=== PATIENT | male | born 1985 ===

== ENCOUNTER 2018-11-08 20:31 | Inpatient (IN) ==
[2018-11-08] MEDS ORDERED: METHOCARBAMOL 1,000 MG/10 ML VIAL IV STA (20:54)
[2018-11-08] MEDS ORDERED: SODIUM CHLORIDE 0.9% 1,000 ML IV STA (20:54)
[2018-11-08] MEDS ORDERED: ONDANSETRON 4 MG/2 ML VIAL IV STA (20:54)
[2018-11-08] MEDS ORDERED: POTASSIUM BICARB EFFERVESCENT 25 MEQ TABLET PO ONE (20:54)
[2018-11-08 21:27] LABS: Basophils # 0.1 10*3/uL (0.0-0.2); Basophils % 0.5 % (0.0-0.8); Eosinophils % 0.3 % (0.00-10.9); Hematocrit 49.3 VOL% (42.0-52.0); Hemoglobin 16.7 GM/DL (14.0-18.0); Immature Granulocytes % 0.7 %; Immature Granulocytes Absolute 0.08 #; Lymphocytes # 1.7 10*3/uL (1.4-4.0); Lymphocytes % 15.3 % (21.2-54.2); Mean Corpuscular HGB Conc 33.9 GM/DL (32-36); Mean Corpuscular Hemoglobin 32 PG (27-34); Mean Corpuscular Volume 94.3 FL (87-102); Mean Platelet Volume 9.4 FL (9.6-12.0); Monocytes # 0.7 10*3/uL (0.11-0.8); Monocytes % 6.4 % (1.7-12.7); Neutrophils # 8.4 10*3/uL (1.4-7.4); Neutrophils % 76.8 % (38.7-73.9); Platelet Count 316 T/CUMM (130-400); Red Blood Count 5.23 MC/CUMM (3.8-5.5); Red Cell Distribution Width 12.6 % (9.3-17.3)
[2018-11-08 21:31] LABS: Apearance,Urine CLEAR (Clear); Bilirubin,Urine Negative (Negative); Blood, Urine Negative (Negative); Glucose,Urine (UA) Negative (Negative); Ketones,Urine Negative (Negative); Nitrite,Urine Negative (Negative); Protein,Urine Negative; RBC,Urine 1 /HPF (0-4); Urine Color Straw (Yellow); Urine Specific Gravity 1.003 (1.001-1.035); Urine Urobilinogen < 2.0 EU/DL (0.2-1.0); WBC,Urine <1 /HPF (0-6)
[2018-11-08 21:42] LABS: Barbiturates Screen,Urine Negative (Negative); Benzodiazepines Screen,Urine Negative (Negative); Cannabinoid Screen,Urine Negative (Negative); Opiate Screen,Urine Negative (Negative); Phencyclidine Screen,Urine Negative (Negative)
[2018-11-08 21:44] LABS: INR 0.9; PT Patient Result 10.1 SECS
[2018-11-08 21:57] LABS: Alanine Aminotransferase 68 U/L (16-61); Albumin 3.5 G/DL (3.4-5.0); Alkaline Phosphatase 94 U/L (45-117); Aspartate Amino Transferase 42 U/L (0-37); Blood Urea Nitrogen 6 MG/DL (7-18); Calcium 7.6 MG/DL (8.5-10.1); Glucose 100 MG/DL (74-106); Osmolality,Calculated 270.8 MOS/KG (273-304); Potassium 4.2 MMOL/L (3.5-5.1); Sodium 137 MMOL/L (136-145); Total Protein 7.8 G/DL (6.4-8.3); Troponin I < 0.015 NG/ML (0.00-0.045)
[2018-11-08] MEDS ORDERED: THIAMINE INJ 100 MG, FOLIC ACID INJ 1 MG, MAGNESIUM SULF INJ 2 GM, MULTIVITAMIN INJ 10 ... IV STA (22:17)
[2018-11-09] MEDS ORDERED: LORazepam 2 MG/1 ML VIAL IV PRN (00:56)
[2018-11-09] MEDS ORDERED: PROMETHAZINE 25 MG/1 ML VIAL IM PRN (00:56)
[2018-11-09] MEDS ORDERED: NICOTINE 21 MG/24 HR PATCH TRANSDERM PRN (00:56)
[2018-11-09] MEDS ORDERED: ONDANSETRON 4 MG/2 ML VIAL IV PRN ×2 (00:56→09:55)
[2018-11-09] MEDS ORDERED: diphenhydrAMINE CAP 25 MG CAPSULE PO PRN (00:56)
[2018-11-09] MEDS: SODIUM CHLORIDE 0.9% 1,000 ML IV SCH ×4 (02:06→13:50)
[2018-11-09] MEDS: FOLIC ACID INJ 1 MG in SYRINGE 1 EACH IV SCH ×2 (02:48→10:08)
[2018-11-09] MEDS ORDERED: INFLUENZA VIRUS VACCINE 0.5 ML SYRINGE IM ONE (03:54)
[2018-11-09 04:41] LABS: Basophils % 0.5 % (0.0-0.8); Eosinophils # 0.1 10*3/uL (0.0-0.87); Eosinophils % 1.1 % (0.00-10.9); Hematocrit 48.1 VOL% (42.0-52.0); Hemoglobin 15.9 GM/DL (14.0-18.0); Immature Granulocytes % 0.2 %; Immature Granulocytes Absolute 0.02 #; Lymphocytes # 2.3 10*3/uL (1.4-4.0); Lymphocytes % 28.7 % (21.2-54.2); Mean Corpuscular HGB Conc 33.1 GM/DL (32-36); Mean Corpuscular Hemoglobin 31 PG (27-34); Mean Corpuscular Volume 95.1 FL (87-102); Mean Platelet Volume 9.4 FL (9.6-12.0); Monocytes # 1.1 10*3/uL (0.11-0.8); Neutrophils # 4.6 10*3/uL (1.4-7.4); Neutrophils % 56.5 % (38.7-73.9); Platelet Count 315 T/CUMM (130-400); Red Blood Count 5.06 MC/CUMM (3.8-5.5); Red Cell Distribution Width 12.8 % (9.3-17.3); White Blood Count 8.1 T/CUMM (4-12)
[2018-11-09 05:15] LABS: Albumin 3.4 G/DL (3.4-5.0); Bilirubin,Total 1.2 MG/DL (0.2-1.0); Osmolality,Calculated 280.1 MOS/KG (273-304); Potassium 4.2 MMOL/L (3.5-5.1)
[2018-11-09] MEDS ORDERED: ENOXAPARIN 40 MG/0.4 ML SYRINGE SUBCUT SCH (07:00)
[2018-11-09] MEDS ORDERED: ceFAZolin 2,000 MG in PREMIX 1 EACH IV ONE (07:36)
[2018-11-09] MEDS ORDERED: ceFAZolin 1,000 MG VIAL ONE (08:24)
[2018-11-09] MEDS ORDERED: MEPERIDINE 50 MG TABLET PO PRN (09:23)
[2018-11-09] MEDS ORDERED: PROPOFOL 200 MG/20 ML VIAL IV ONE (09:42)
[2018-11-09] MEDS ORDERED: fentaNYL 100 MCG/2 ML VIAL ONE ×2 (09:42)
[2018-11-09] MEDS ORDERED: SEVOFLURANE 1 UNIT/15 MINUTE INH ONE (09:42)
[2018-11-09] MEDS ORDERED: ROCURONIUM 100 MG/10 ML VIAL IV ONE (09:43)
[2018-11-09] MEDS ORDERED: GLYCOPYRROLATE 0.4 MG/2 ML VIAL ONE (09:43)
[2018-11-09] MEDS ORDERED: PHENYLEPHRINE 1 MG/10 ML SYRINGE IV ONE (09:43)
[2018-11-09] MEDS ORDERED: KETOROLAC 30 MG/1 ML VIAL ONE (09:43)
[2018-11-09] MEDS ORDERED: ONDANSETRON 4 MG/2 ML VIAL ONE ×2 (09:43→10:07)
[2018-11-09] MEDS ORDERED: NEOSTIGMINE 10 MG/10 ML VIAL ONE (09:43)
[2018-11-09] MEDS ORDERED: HYDROmorphone 2 MG/1 ML VIAL ONE (10:07)
[2018-11-09] MEDS: HYDROmorphone 2 MG/1 ML VIAL IV PRN ×4 (10:08→10:30)
[2018-11-09] MEDS: THIAMINE 100 MG TABLET PO SCH (10:08)
[2018-11-09] MEDS: MORPHINE 4 MG/1 ML VIAL IV PRN ×3 (13:51→23:50)
[2018-11-09] MEDS: ceFAZolin 2,000 MG in PREMIX 1 EACH IV SCH ×2 (13:52→21:37)
[2018-11-09] MEDS: MEPERIDINE 50 MG TABLET PO PRN ×2 (15:46→21:36)
[2018-11-10] MEDS: MEPERIDINE 50 MG TABLET PO PRN ×2 (01:59→17:21)
[2018-11-10] MEDS: SODIUM CHLORIDE 0.9% 1,000 ML IV SCH ×3 (02:00→22:37)
[2018-11-10] MEDS: KETOROLAC 15 MG/1 ML VIAL IV PRN (04:40)
[2018-11-10] MEDS: MORPHINE 10 MG/1 ML VIAL IV PRN ×5 (04:42→22:38)
[2018-11-10 06:07] LABS: Basophils % 0.5 % (0.0-0.8); Eosinophils # 0.2 10*3/uL (0.0-0.87); Eosinophils % 2.1 % (0.00-10.9); Hematocrit 40.6 VOL% (42.0-52.0); Hemoglobin 13.3 GM/DL (14.0-18.0); Immature Granulocytes % 0.5 %; Immature Granulocytes Absolute 0.04 #; Lymphocytes # 1.2 10*3/uL (1.4-4.0); Lymphocytes % 13.8 % (21.2-54.2); Mean Corpuscular HGB Conc 32.8 GM/DL (32-36); Mean Corpuscular Hemoglobin 32 PG (27-34); Mean Corpuscular Volume 97.1 FL (87-102); Mean Platelet Volume 9.5 FL (9.6-12.0); Monocytes # 1.7 10*3/uL (0.11-0.8); Monocytes % 20.2 % (1.7-12.7); Neutrophils # 5.4 10*3/uL (1.4-7.4); Neutrophils % 62.9 % (38.7-73.9); Platelet Count 223 T/CUMM (130-400); Red Blood Count 4.18 MC/CUMM (3.8-5.5); Red Cell Distribution Width 12.7 % (9.3-17.3); White Blood Count 8.5 T/CUMM (4-12)
[2018-11-10] MEDS: ceFAZolin 2,000 MG in PREMIX 1 EACH IV SCH (06:16)
[2018-11-10 06:38] LABS: Calcium 7.9 MG/DL (8.5-10.1); Osmolality,Calculated 270.8 MOS/KG (273-304); Potassium 4.2 MMOL/L (3.5-5.1)
[2018-11-10 06:43] LABS: Band Neutrophils 1 % (0-10); Eosinophils 3 % (0-10); Hypochromasia 1+; Lymphocytes 12 % (20-55); Platelet Estimate Adequate; Segmented Neutrophils 69 % (50-85); Total Cells Counted 100
[2018-11-10] MEDS: FOLIC ACID 1 MG TABLET PO SCH (07:59)
[2018-11-10] MEDS: THIAMINE 100 MG TABLET PO SCH (07:59)
[2018-11-11] MEDS: MEPERIDINE 50 MG TABLET PO PRN ×2 (04:27→08:13)
[2018-11-11] MEDS: THIAMINE 100 MG TABLET PO SCH (08:13)
[2018-11-11] MEDS: FOLIC ACID 1 MG TABLET PO SCH (08:13)
[2018-11-11] MEDS: KETOROLAC 15 MG/1 ML VIAL IV PRN (13:10)
[2018-11-12 06:13] LABS: Basophils % 0.2 % (0.0-0.8); Eosinophils # 0.7 10*3/uL (0.0-0.87); Eosinophils % 7.1 % (0.00-10.9); Hematocrit 37.8 VOL% (42.0-52.0); Hemoglobin 12.4 GM/DL (14.0-18.0); Immature Granulocytes % 0.7 %; Immature Granulocytes Absolute 0.06 #; Lymphocytes % 11.1 % (21.2-54.2); Mean Corpuscular HGB Conc 32.8 GM/DL (32-36); Mean Corpuscular Hemoglobin 32 PG (27-34); Mean Corpuscular Volume 96.4 FL (87-102); Mean Platelet Volume 10.1 FL (9.6-12.0); Monocytes # 1.2 10*3/uL (0.11-0.8); Neutrophils # 6.2 10*3/uL (1.4-7.4); Neutrophils % 67.9 % (38.7-73.9); Platelet Count 235 T/CUMM (130-400); Red Blood Count 3.92 MC/CUMM (3.8-5.5); Red Cell Distribution Width 12.7 % (9.3-17.3); White Blood Count 9.1 T/CUMM (4-12)
[2018-11-12] MEDS: FOLIC ACID 1 MG TABLET PO SCH (08:48)
[2018-11-12] MEDS: THIAMINE 100 MG TABLET PO SCH (08:49)
[2018-11-12 12:39] VITALS: BP 149/70
== END 2018-11-12 14:19 | disposition home or self-care (01) | DRG 493 ==
LOC: EDUNIT# → EDBD → N.ED 20:31 → N.EDINP 11-09 00:56 → SUATTDRO 11-09 00:56 → N.3E 11-09 01:27
PROVIDERS: ADMIT Internal Medicine Geriatric Medicine; ATTEND Internal Medicine

== ENCOUNTER 2019-03-12 02:05 | Observation (INO) ==
[2019-03-12] MEDS ORDERED: NICOTINE 21 MG/24 HR PATCH TRANSDERM PRN (04:21)
[2019-03-12] MEDS ORDERED: ONDANSETRON 4 MG/2 ML VIAL IV PRN (04:21)
[2019-03-12 05:54] LABS: Basophils % 0.7 % (0.0-0.8); Eosinophils % 0.7 % (0.00-10.9); Hemoglobin 13.6 GM/DL (14.0-18.0); Immature Granulocytes % 0.2 %; Immature Granulocytes Absolute 0.01 #; Lymphocytes % 24.1 % (21.2-54.2); Mean Corpuscular HGB Conc 32.4 GM/DL (32-36); Mean Corpuscular Volume 90.7 FL (87-102); Mean Platelet Volume 9.6 FL (9.6-12.0); Monocytes % 17.5 % (1.7-12.7); Neutrophils % 56.8 % (38.7-73.9); Platelet Count 221 T/CUMM (130-400); Red Blood Count 4.63 MC/CUMM (3.8-5.5); Red Cell Distribution Width 15.2 % (9.3-17.3); White Blood Count 4.2 T/CUMM (4-12)
[2019-03-12] MEDS ORDERED: THIAMINE INJ 100 MG, FOLIC ACID INJ 1 MG, MULTIVITAMIN INJ 10 ML in SODIUM CHLORIDE 0.9... IV ONE (06:00)
[2019-03-12 06:25] LABS: Albumin 3.5 G/DL (3.4-5.0); Bilirubin,Total 1.4 MG/DL (0.2-1.0); Calcium 8.1 MG/DL (8.5-10.1); Osmolality,Calculated 279.1 MOS/KG (273-304); Total Protein 6.9 G/DL (6.4-8.3)
[2019-03-12 06:31] LABS: Anisocytosis 1+; Lymphocytes 22 % (20-55); Segmented Neutrophils 60 % (50-85); Total Cells Counted 100
[2019-03-12 06:32] LABS: Platelet Estimate Adequate
[2019-03-12 07:03] LABS: CKMB % 0.4 %; Troponin I < 0.015 NG/ML (0.00-0.045)
[2019-03-12 08:04] LABS: Apearance,Urine CLEAR (Clear); Bilirubin,Urine Negative (Negative); Blood, Urine Negative (Negative); Glucose,Urine (UA) Negative (Negative); Ketones,Urine Negative (Negative); Nitrite,Urine Negative (Negative); Protein,Urine Negative; RBC,Urine <1 /HPF (0-4); Urine Color Straw (Yellow); Urine Specific Gravity 1.009 (1.001-1.035); Urine Urobilinogen < 2.0 EU/DL (0.2-1.0); WBC,Urine <1 /HPF (0-6)
[2019-03-12] MEDS: PANTOPRAZOLE 40 MG TABLET PO SCH (08:17)
[2019-03-12 08:18] LABS: Barbiturates Screen,Urine Negative (Negative); Benzodiazepines Screen,Urine Negative (Negative); Cannabinoid Screen,Urine Negative (Negative); Opiate Screen,Urine Negative (Negative); Phencyclidine Screen,Urine Negative (Negative)
[2019-03-12] MEDS: SODIUM CHLORIDE 0.9% 1,000 ML IV SCH ×2 (17:20→22:40)
[2019-03-13 04:56] LABS: Basophils % 0.9 % (0.0-0.8); Eosinophils # 0.2 10*3/uL (0.0-0.87); Eosinophils % 3.9 % (0.00-10.9); Hemoglobin 14.1 GM/DL (14.0-18.0); Immature Granulocytes % 0.4 %; Immature Granulocytes Absolute 0.02 #; Lymphocytes # 1.2 10*3/uL (1.4-4.0); Lymphocytes % 24.8 % (21.2-54.2); Mean Corpuscular Volume 91.9 FL (87-102); Mean Platelet Volume 9.5 FL (9.6-12.0); Monocytes % 13.7 % (1.7-12.7); Neutrophils % 56.3 % (38.7-73.9); Platelet Count 198 T/CUMM (130-400); Red Blood Count 4.79 MC/CUMM (3.8-5.5); Red Cell Distribution Width 14.7 % (9.3-17.3); White Blood Count 4.7 T/CUMM (4-12)
[2019-03-13 05:33] LABS: Albumin 3.5 G/DL (3.4-5.0); Calcium 8.5 MG/DL (8.5-10.1); Osmolality,Calculated 277.3 MOS/KG (273-304)
[2019-03-13] MEDS: SODIUM CHLORIDE 0.9% 1,000 ML IV SCH (07:06)
[2019-03-13 07:28] VITALS: BP 148/95
[2019-03-13] MEDS: PANTOPRAZOLE 40 MG TABLET PO SCH (08:46)
== END 2019-03-13 11:18 | disposition home or self-care (01) ==
LOC: N.3E → SUATTDRO 03:32
PROVIDERS: ADMIT Internal Medicine; ATTEND Hospitalist